=== PATIENT | female | born 1980 | race Caucasian/White ===

== ENCOUNTER → 2017-05-14 | Outpatient (CLI) | payer OTHER ==
--- NOTE | 2017-05-15 08:20 | Diagnostic Imaging Report ---
#[id number] - MGDXBIL #BILATERAL FIRST EVER DIGITAL DIAGNOSTIC MAMMOGRAM WITH CAD: 05/14/2017 No prior exams were available for comparison. Current study contains 10 films. The tissue of both breasts is heterogeneously dense. This may lower the sensitivity of mammography. Current study was also evaluated with a Computer Aided Detection (CAD) system. There are bilateral intact implants. A palpable mass marker at 12 o'clock on the left breast is present. No corresponding mass is seen. Benign calcification in both breasts. No significant masses, calcifications, or other findings are seen in either breast. IMPRESSION: INCOMPLETE: NEEDS ADDITIONAL IMAGING EVALUATION Palpable mass marker without associated mammographic abnormality requires ultrasound for additional evaluation and will be performed today. Rodrigo Macedo Jr., D.O. cw/:05/14/2017 15:08:59 Bus Girl: Danya SARAVIA(Raegan)(Dilshad), [facility] letter sent: Additional Imaging Needed Mammogram BI-RADS: 0 Indeterminate
--- NOTE | 2017-05-15 08:20 | Diagnostic Imaging Report ---
#[id number] - USBRELIMLT ULTRASOUND OF THE LEFT BREAST : 05/14/2017 Comparison is made to exam dated: 05/14/2017 mammogram - [facility]. Color flow and real-time ultrasound were performed on the left breast in the area of interest where there is a palpable mass marker. Heterogenous breast tissue with several cysts are noted in the area of interest at 12 o'clock. -At 11 o'clock 3 cm from the nipple is a 6 x 3 x 5 mm cyst -At 11 o'clock also 3 cm from the nipple is a 5 x 2 x 5 mm cyst. -At 12 o'clock 3 cm from the nipple is a 4 x 2 x 4 mm cyst. IMPRESSION: BENIGN - FOLLOW-UP RECOMMENDED There is no sonographic evidence of malignancy. If the patient still feels pain or a palbable abnormality then a follow-up ultrasound in 6 months is recommended to demonstrate stability. Rodrigo Macedo Jr., D.O. cw/:05/14/2017 15:20:47 Woodworker Helper: MARY FITZGERALD RT, [facility] letter sent: Normal Exam Ultrasound BI-RADS: 2 Benign
== END ==
LOC: MAMMO 13:39
PROVIDERS: ATTEND Specialist
DX: N60.02 Solitary cyst of left breast (principal)
CPT/HCPCS: 77066

== ENCOUNTER → 2017-09-13 | Outpatient (CLI) | payer OTHER ==
--- NOTE | 2017-09-13 13:04 | Diagnostic Imaging Report ---
PROCEDURE:US BREAST LIMITED LEFT COMPARISON:Patients [facility], US, US BREAST LIMITED LEFT, 05/14/2017, 14:34. INDICATIONS:Pain FINDINGS:Ultrasound evaluation of the left breast medial aspect was accomplished. Simple cysts appear unchanged compared to the prior study. No large cyst is identified. In the region of the palpable skin redness and edema there is increased vascularity in the superficial tissues extending from 10:00 to 12:00. This is consistent with a developing breast abscess and/or mastitis. Density of the sonographic finding is not liquid enough to aspirate or drain. Recommend a course of antibiotics with followup study to evaluate for aspiration or drainage. The Film Color Tester, Nancy in Dr. Estevez's office was informed of these findings and recommendations. CONCLUSION:Sonographic findings suggestive of mastitis/developing abscess involving the left breast which is not liquid enough to aspirate or drain. Rodrigo Macedo D.O. Dictated by: Rodrigo Macedo D.O. on 09/13/2017 at 13:08 Electronically approved by: Rodrigo Macedo D.O. on 09/13/2017 at 13:08
== END ==
LOC: US 11:52
PROVIDERS: ATTEND Specialist
DX: N60.02 Solitary cyst of left breast (principal)